=== PATIENT | female | born 1990 | race Caucasian/White ===

== ENCOUNTER 2016-11-13 10:38 | Emergency (ER) | payer SELFPAY ==
[2016-11-13 10:42] VITALS: BP 113/76; BMI 20.8
--- NOTE | 2016-11-13 11:01 | DR.EARACHE ---
HPI - Time Seen Time seen: 10:57 - PCP Primary Care Physician: NFD - Complaint/Symptoms Chief Complaint Doctor Comments: No trauma, no water in ear. Chief Complaint:: PT. C/O LEFT EARACHE X 2 DAYS. 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 Past Surgical History Comment: TUBAL LIGATION - Family History History of Family Medical Conditions: No - Social History Does patient currently use any type of tobacco product: No Have you used tobacco products in the last 12 months: No Type of Tobacco Use: None Does any household member use tobacco: No Alcohol Use: None Do you use any recreational Drugs:: No Lives With: Family Lives Where: Home - infectious screening In the last 2 months have you had wt loss of >10#?: NO Have you had fever, night sweats or hemotysis?: No Have you traveled outside the country in the last 6 months?: No Isolation: Standard ROS - Review of Systems Constitutional: No Symptoms Reported Eyes: No Symptoms Reported ENTM: Ear Pain (left) Respiratoy: No Symptoms Reported Cardiovascular: No Symptoms Reported Gastrointestinal/Abdominal: No Symptoms Reported Genitourinary: No Symptoms Reported Neurological: No Symptoms Reported Musculoskeletal: No Symptoms Reported Integumentary: No Symptoms Reported Hematologic/Lymphatic: No Symptoms Reported Endocrine: No Symptoms Reported Psychiatric: No Symptoms Reported PE - Vitals Vitals: Temperature 98.1 F Pulse Rate 72 Respiratory Rate 17 Blood Pressure 113/76 O2 Sat by Pulse Oximetry 100 - General Limitations: No Limitations General Appearance: Alert, In No Apparent Distress - Head Head Exam: Normal Inspection - Eyes Eye exam: Normal Appearance, EOMI. negative: Scleral Icterus, Conjunctival Injection - ENT ENT Exam: Normal Oropharynx External Ear Exam: Normal External Inspection. negative: Auricular Trauma TM/Canal Exam: Left Canal Tenderness (swelling), Bilateral Normal Nose Exam: Normal Nose Exam Mouth Exam: Normal Inspection, Other (pierced tongue). negative: Drooling, Trismus, Tongue Swelling Teeth Exam: Normal Inspection Throat Exam: Normal Inspection. negative: Tonsillar Erythema, Tonsillomegaly - Neck Neck Exam Focused: Normal Inspection - Respiratory Respiratory Exam: negative: Accessory Muscle Use, Respiratory Distress - Extremities Extremities Exam: Normal Inspection, Full ROM - Back Back Exam: Normal Inspection, Full ROM - Neurological Neurological Exam: Alert, Oriented X3, CN II-XII Intact - Psychiatric Psychiatric Exam: Normal Mood - Skin Skin Exam: Intact, Normal Color - Diagnosis Discharge Problem: Otitis externa Qualifiers: Otitis externa type: unspecified type Chronicity: acute Laterality: left Qualified Code(s): H60.502 - Unspecified acute noninfective otitis externa, left ear - Discharge Plan Condition: Stable Prescriptions: Amoxicillin 250 mg PO TID #30 cap Qlmqdbdy-Npgxtiqwy-Jo (Otic) [Cortisporin Otic Susp] 3 drop AFF EAR TID #1 ea - Follow ups/Referrals Follow ups/Referrals: NFD,None [Primary Care Provider] - 3 days - Instructions
== END 2016-11-13 11:11 | disposition home or self-care (01) ==
LOC: ER 10:48
DX: H60.502 Unspecified acute noninfective otitis externa, left ear (principal)
CPT/HCPCS: 99281; 99282

== ENCOUNTER 2017-04-23 04:29 | Emergency (ER) | payer OTHER ==
[2017-04-23 04:42] VITALS: BP 104/67; BMI 21.9
--- NOTE | 2017-04-23 06:13 | DR.GENAD ---
HPI - PCP Primary Care Physician: NFD - Complaint/Symptoms Chief Complaint Doctors Comments: Patient had an on the job injury one week ago , was advised by company to get the foot evaluated. Chief Complaint:: "HURT RT FOOT AT WORK , BUMPED INTO SOME HEAVY METAL EQUIPMENT. SINCE IT HAS BEEN HURTING. WORK MADE ME COME GET IT CHECKED. 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 - Family History History of Family Medical Conditions: No - Social History Does patient currently use any type of tobacco product: No Have you used tobacco products in the last 12 months: No Type of Tobacco Use: None Does any household member use tobacco: No Alcohol Use: None Do you use any recreational Drugs:: No Lives With: Alone Lives Where: Home - infectious screening Have you traveled outside the country in the last 6 months?: No Isolation: Standard ROS - Review of Systems Eyes: No Symptoms Reported ENTM: No Symptoms Reported Respiratoy: No Symptoms Reported Cardiovascular: No Symptoms Reported Gastrointestinal/Abdominal: No Symptoms Reported Genitourinary: No Symptoms Reported Neurological: No Symptoms Reported Musculoskeletal: No Symptoms Reported Integumentary: No Symptoms Reported Hematologic/Lymphatic: No Symptoms Reported Endocrine: No Symptoms Reported Psychiatric: No Symptoms Reported All Other Systems: Reviewed and Negative PE - Vital Signs Vitals: Pulse Rate 82 Respiratory Rate 16 Blood Pressure 104/67 O2 Sat by Pulse Oximetry 100 - General General Appearance: Alert - Head Head Exam: Normal Inspection, Atraumatic - Eyes Eye exam: Normal Appearance, PERRL, EOMI - ENT ENT Exam: Normal Exam External Ear Exam: Normal External Inspection TM/Canal Exam: Bilateral Normal Nose Exam: Normal Nose Exam Mouth Exam: Normal Inspection Throat Exam: Normal Inspection - Neck Neck Exam: Normal Inspection, Full ROM - Chest Chest Inspection: Normal Inspection - Respiratory Respiratory Exam: Normal Lung Sounds Bilat Respiratory Exam: Bilateral Clear to Auscultation - Cardiovascular Cardiovascular Exam: Regular Rate, Normal Rhythm - Abdominal Exam Abdominal Exam: Normal Inspection, Normal Bowel Sounds Abdominal Tenderness: negative: RUQ, RLQ, LUQ, LLQ, Epigastrium, Suprapubic, Diffuse, Mild, Moderate, Severe, Other - Extremities Extremities Exam: Tenderness (right navicular bone, no edema) - Back Back Exam: Normal Inspection - Neurologic Neurological Exam: Alert, Oriented X3, CN II-XII Intact - Psychiatric Psychiatric Exam: Normal Affect - Skin Skin Exam: Warm, Dry, Intact Course - Reevaluation 1st: Unchanged ROR - XRAY XRAY Interpreted by: Radiologist (right foot: negative) - Diagnosis Discharge Problem: Injury, foot Qualifiers: Encounter type: initial encounter Laterality: right Qualified Code(s): S99.921A - Unspecified injury of right foot, initial encounter - Discharge Plan Condition: Stable - Follow ups/Referrals Follow ups/Referrals: NFD,None [Primary Care Provider] - 3 days - Instructions
--- NOTE | 2017-04-23 06:45 | RAD ---
HISTORY: Foot injury, right foot pain Study: Right foot AP, lateral, oblique Comparison: None Findings: No acute cortical disruption or dislocation can be identified. No significant soft tissue swelling o r injury can be seen. The visualized portions of the talus and calcaneus are unremarkable. The joint s are normal. The 2nd metatarsal is intact. IMPRESSION: 1. Negative exam. Reported By:
== END 2017-04-23 07:15 | disposition home or self-care (01) ==
LOC: ER 04:29
DX: S99.921A Unspecified injury of right foot, initial encounter (principal); X58.XXXA Exposure to other specified factors, initial encounter; Y92.69 Other specified industrial and construction area as the place of occurrence of the external cause
CPT/HCPCS: 73630; 99282